=== PATIENT | female | born 1980 | race Caucasian/White ===

== ENCOUNTER 2021-05-20 15:54 | Outpatient (CLI) | payer BC, SELFPAY ==
--- NOTE | ~2021-05-20 | MM_ITS ---
EXAMINATION: MM screening man BI w vel HISTORY: Screening TECHNIQUE: Craniocaudal and mediolateral oblique 3-D tomosynthesis images were obtained and synthetic 2-D images were generated. CAD analysis was submitted and interpreted. COMPARISON: No prior mammogram is available for comparison at this institution. BREAST PARENCHYMAL COMPOSITION: There are scattered areas of fibroglandular density. FINDINGS: There is no evidence of suspicious mass, calcification, or architectural distortion to sugg est malignancy in either breast. There has been no suspicious interval change. IMPRESSION: 1. No mammographic evidence of malignancy. 2. Recommend routine screening mammography in one year. BI-RADS Category 1: Negative Reviewed, dictated and finalized at location A.
== END 2021-05-20 15:55 | disposition home or self-care (01) ==
LOC: ANHIMG 15:58
PROVIDERS: PCP Pediatrics; Visit Provider Student in an Organized Health Care Education/Training Program
DX: Z12.31 Encounter for screening mammogram for malignant neoplasm of breast (principal)
CPT/HCPCS: 77063; 77067

== ENCOUNTER 2021-05-30 14:25 | Outpatient (CLI) | payer BC, SELFPAY ==
--- NOTE | 2021-05-30 15:42 | ECG_ITS ---
Measurements Intervals [place] Rate: 80 P: 18 HI: 146 QRS: 50 QRSD: 89 T: 56 QT: 372 QTc: 431 Interpretive Statements SINUS RHYTHM MINIMAL Q WAVES- INFERIOR LEADS BASELINE ARTIFACT- I, III, AVL, AVF BORDERLINE ECG Electronically Signed On 05-30-2021 18:56:39 CDT by Warner Steward D.O.
[2021-05-30 16:07] LABS: Basophils Percent Auto 0.3 % (0.2-1.2); Eosinophils Absolute Auto 0.1 K/mm3 (0-0.3); Eosinophils Percent Auto 1.8 % (0-4.4); Hematocrit 48.9 % (37.0-47.0); Hemoglobin 15.6 g/dL (12.0-15.0); Immature Granulocyte Absolute 0.02 K/mm3 (0.00-0.031); Immature Granulocyte Percent A 0.3 % (0-0.5); Lymphocytes Absolute Auto 0.93 K/mm3 (0.9-3.2); Mean Corpuscular HGB Conc 31.9 g/dl (32-36); Mean Corpuscular Hemoglobin 30.1 pg (26-34); Mean Corpuscular Volume 94.2 fl (80-100); Mean Platelet Volume 9.7 fl (7.4-10.4); Monocytes Absolute Auto 0.7 K/mm3 (0.1-0.6); Monocytes Percent Auto 8.9 % (2.6-8.5); Neutrophils Absolute Auto 5.9 K/mm3 (1.3-6.7); Neutrophils Percent Auto 76.7 % (45.5-73.1); Platelet Count Result 397 k/mm3 (150-375); Red Blood Count 5.19 M/mm3 (4.2-5.4); Red Cell Distribution Width 12.9 % (11.5-14.5); White Blood Count 7.7 K/mm3 (4.5-10.0)
[2021-05-30 16:17] LABS: INR 0.9; Prothrombin Time 12.4 Seconds (11.1-14.7)
[2021-05-30 16:18] LABS: Partial Thromboplastin Time 28.7 SECONDS (22.3-36.8)
[2021-05-30 17:49] LABS: Alanine Aminotransferase 21 U/L (4-35); Albumin Level 4.8 g/dL (3.5-5.1); Alkaline Phosphatase 79 U/L (38-126); Anion Gap 9 mmol/L (8-16); Aspartate Amino Transferase 27 U/L (14-36); Bilirubin,Total 1.2 mg/dL (0.2-1.3); Blood Urea Nitrogen 12 mg/dL (7-17); Calcium 8.7 mg/dL (8.4-10.2); Carbon Dioxide 29 mmol/L (22-30); Chloride 103 mmol/L (98-107); Estimated Glomerular Filt Rate > 60; Glucose 101 mg/dL (65-110); Potassium 3.7 mmol/L (3.4-5.0); Sodium 141 mmol/L (137-145)
== END 2021-05-30 14:26 | disposition home or self-care (01) ==
PROVIDERS: PCP Pediatrics; Visit Provider Urology
DX: N81.2 Incomplete uterovaginal prolapse (principal); Z01.818 Encounter for other preprocedural examination
CPT/HCPCS: 36415; 80053; 85025; 85610; 85730; 86850; 86900; 86901; 87077; 87086; 87088; 93005

== ENCOUNTER 2021-06-03 01:32 | Day surgery (SDC) | payer BC, SELFPAY ==
[2021-05-30 15:02] VITALS: BP 142/92; PULSE 91; RESP 18; TEMP 36.6; O2SAT 99; BMI 39.6
--- NOTE | 2021-05-31 13:56 | P.PNAN_ITS ---
Anes - Initial Pre Proc Eval Procedure: Operation Date: 06/03/21 07:30 Proposed Procedures p Robotic Sacrocolpopexy - Ronal Hawkins MD s Urethral Sling - Ronal Hawkins MD s Robotic Assisted Supracervical Hysterectomy with Bilateral Salpingectomy - Thomas Pedersen MD Date/Time: 05/31/21 13:56 Surgeon: Ronal Hawkins MD Pre Op Diagnosis: incomplete uterovaginal prolapse, stress incont Patient Data Age: 40 Gender: F Height: 1.7 m Weight: 114.7 kg Last Vital Signs Temp 97.9 F 05/30/21 15:02 Pulse 91 05/30/21 15:02 Resp 18 05/30/21 15:02 BP 142/92 H 05/30/21 15:02 Pulse Ox 99 05/30/21 15:02 Allergies Allergy/AdvReac Type Severity Reaction Status Date / Time clindamycin Allergy Severe Rash Verified 05/30/21 14:54 levofloxacin Allergy Severe Stopped Verified 05/30/21 14:54 Breathing erythromycin base Allergy Unknown Rash Verified 05/30/21 14:54 Penicillins Allergy Unknown Unknown Verified 05/30/21 14:54 Home Medications Medication Instructions Recorded Confirmed Type bupropion HCl 300 mg PO QAM 05/30/21 05/30/21 History cholecalciferol (vitamin D3) 50 mcg PO DAILY 05/30/21 05/30/21 History levothyroxine 150 mcg PO QAM 05/30/21 05/30/21 History multivitamin [Multiple Vitamin] 1 tablet PO DAILY 05/30/21 05/30/21 History Patient hx anesthesia problems: none Family hx anesthesia problems: none Results Review: All pre-operative results and documents have been reviewed as part of the pre-operative evaluation. FOR[facility]LY [facility] Past Medical History Medical History Anxiety Asthma Depression Hypothyroid Social History Social History Smoking packs per day: 0.25 Smoking cigarettes per day: 5.0 Years smoked: 6 Smoking pack-years: 1.50 Smoking status: Former smoker Smoking end date: 02/21/10 Alcohol intake: former Alcohol use details: [employer] Substance use: never Living arrangements: with family Additional living arrangements comments: HUSB AND CHILDREN Spiritual care concerns: No Anes - Eval Final PreProcedure Day of Procedure 05/31/21 13:56 Patient weight: morbidly obese Heart: regular rate and rhythm Lungs: clear to auscultation Airway: Mallampati scale class II Neurological: alert and oriented Last oral intake: >/= 8 hours ASA classification: III Emergent: no Anesthetic plan: proceed Anesthesia type and monitoring: general ETT and standard monitoring Results Review: All pre-operative results and documents have been reviewed as part of the pre-operative evaluation. Informed Consent: The patient's anesthetic plan and its attendant risks and benefits were discussed with the patient/family/POA. Questions were solicited and answers provided to the satisfaction of the patient/family/POA.
--- NOTE | 2021-06-01 12:42 | P.HP_ITS ---
H&P: HPI History of Present Illness Date/Time: 06/01/21 12:42 40 yo with uretine prolapse and KLEBER Chief Complaint: POP/KLEBER Review of Systems Review of Systems: All systems reviewed & are unremarkable except as noted in HPI and below [facility] Past Medical History Medical History Anxiety Asthma Depression Hypothyroid Social History Social History Smoking packs per day: 0.25 Smoking cigarettes per day: 5.0 Years smoked: 6 Smoking pack-years: 1.50 Smoking status: Former smoker Smoking end date: 02/21/10 Alcohol intake: former Alcohol use details: [employer] Substance use: never Additional living arrangements comments: HUSB AND CHILDREN Spiritual care concerns: No Meds Home Medications and Allergies Home Medications Medication Instructions Recorded Confirmed Type bupropion HCl 300 mg PO QAM 05/30/21 05/30/21 History cholecalciferol (vitamin D3) 50 mcg PO DAILY 05/30/21 05/30/21 History levothyroxine 150 mcg PO QAM 05/30/21 05/30/21 History multivitamin [Multiple Vitamin] 1 tablet PO DAILY 05/30/21 05/30/21 History Allergies Allergy/AdvReac Type Severity Reaction Status Date / Time clindamycin Allergy Severe Rash Verified 05/30/21 14:54 levofloxacin Allergy Severe Stopped Verified 05/30/21 14:54 Breathing erythromycin base Allergy Unknown Rash Verified 05/30/21 14:54 Penicillins Allergy Unknown Unknown Verified 05/30/21 14:54 Exam Const: General: cooperative and healthy appearing HENMT: Head: normal to inspection Mouth: Yes Normal oral and palatal mucosa present Eyes: General: appearance normal, both eyes and all related structures Resp: Effort & Inspection: normal respiratory effort and able to speak in complete sentences GI: Inspection: normal to inspection : Bimanual Exam- Adnexa, other: No apex supported (-1) Skin: General skin exam: normal color Neuro: General: patient oriented x3 Assessment and Plan Assessment and plan (1) Uterine prolapse: Code(s): N81.4 - Uterovaginal prolapse, unspecified Status: Acute Assessment and Plan: Robotic Sacral Colpopexy (2) KLEBER (stress urinary incontinence, female): Code(s): N39.3 - Stress incontinence (female) (male) Status: Acute Assessment and Plan: Urethral sling
--- NOTE | 2021-06-02 20:15 | PM.IMHP ---
H&P: HPI History of Present Illness Date/Time: 06/02/21 20:15 Chief Complaint: pelvic organ prolapse urinary incontinence Narrative: 40 yo female who presents for robotic assisted TLH/BS with sacral colpopexy and midurethral sling. Review of Systems Cardiovascular: Cardiovascular: Denies chest pain, Denies leg edema, Denies palpitations, Denies dyspnea and Denies dyspnea on exertion Respiratory: Respiratory: Denies cough, Denies dyspnea and Denies dyspnea on exertion Gastrointestinal: Gastrointestinal: Denies abdominal pain, Denies constipation, Denies diarrhea, Denies nausea and Denies vomiting Genitourinary: Genitourinary: Denies hematuria, Denies urinary frequency, Denies dysuria, Denies pelvic pain, Denies urinary incontinence and Denies vaginal discharge Neurologic: Reports system reviewed and no additional complaints, except as documented Psychiatric: Psychiatric: Reports no additional psychiatric complaints Endocrine: Endocrine: Denies palpitations PMFSH Past Medical History Medical History Anxiety Asthma Depression Hypothyroid Social History Social History Smoking packs per day: 0.25 Smoking cigarettes per day: 5.0 Years smoked: 6 Smoking pack-years: 1.50 Smoking status: Former smoker Smoking end date: 02/21/10 Alcohol intake: former Alcohol use details: [employer] Substance use: never Additional living arrangements comments: HUSB AND CHILDREN Spiritual care concerns: No Meds Home Medications and Allergies Home Medications Medication Instructions Recorded Confirmed Type bupropion HCl 300 mg PO QAM 05/30/21 05/30/21 History cholecalciferol (vitamin D3) 50 mcg PO DAILY 05/30/21 05/30/21 History levothyroxine 150 mcg PO QAM 05/30/21 05/30/21 History multivitamin [Multiple Vitamin] 1 tablet PO DAILY 05/30/21 05/30/21 History Allergies Allergy/AdvReac Type Severity Reaction Status Date / Time clindamycin Allergy Severe Rash Verified 05/30/21 14:54 levofloxacin Allergy Severe Stopped Verified 05/30/21 14:54 Breathing erythromycin base Allergy Unknown Rash Verified 05/30/21 14:54 Penicillins Allergy Unknown Unknown Verified 05/30/21 14:54 Exam Const: General: no acute distress Eyes: EOM: EOMs intact bilaterally Neck: Neck: supple Thyroid: thyroid normal Chest: Breast/axilla inspection: normal inspection of the breasts Breast/axilla palpation: normal palpation of the breasts, normal palpation of the axillae and no axillary lymphadenopathy Resp: Effort & Inspection: normal respiratory effort Auscultation: clear to auscultation bilaterally Cardio: Rate: regular rate Rhythm: regular rhythm GI: Inspection: non-distended GI Palp: Yes Soft to palpation, No Tenderness to palpation present (GI) and No Guarding due to palpation present (GI) Auscultation: normal bowel sounds : General: No bladder normal to palpation External Female Exam: normal external appearance Speculum Exam - Vagina: normal vaginal discharge and No vaginal bleeding Speculum Exam - Cervix: nontender Bimanual exam- vagina & uterus: No bladder normal to palpation and No Cervical tenderness present OB/external & speculum: No vaginal bleeding Skin: General skin exam: normal color and no rashes or lesions noted Neuro: Cognition (Neuro): normal cognition Speech: normal speech Extrem: General: normal to inspection and no edema Psych: Mental Status: mental status grossly normal Affect: normal affect Assessment and Plan Assessment and plan (1) Uterine prolapse: Code(s): N81.4 - Uterovaginal prolapse, unspecified Status: Acute Assessment and Plan: pt with symptomatic pelvic organ prolapse plan for robotic TLH/BS with sacral colpopexy performed by urogyneoclogy (2) KLEBER (stress urinary incontinence, female): Code(s): N39.3 - Stress incon
[2021-06-03] VITALS (10 sets, daily range): BP systolic 101–131; BP diastolic 57–81; PULSE 55–78; RESP 12–18; TEMP 36.1–37.1; O2SAT 94–100
--- NOTE | 2021-06-03 07:01 | WPDHPUPDATE1 ---
History and Physical Update Update Date/Time: 06/03/21 07:01 History and Physical has been reviewed, including an updated exam of the patient. There are NO changes in the patient's condition. Risks, benefits, and alternatives have been discussed and questions answered. Patient agrees to proceed with procedure.
[2021-06-03] MEDS: LACTATED RINGERS 1,000 ML 30 ML IV CONT ×2 (07:05→10:53)
[2021-06-03] MEDS: KETOROLAC 15 MG/ML VIAL (*BKC) IV PUSH (07:11)
[2021-06-03] MEDS: ACETAMINOPHEN 500 MG TABLET 1000 MG PO (07:11)
--- NOTE | 2021-06-03 07:17 | WPDHPUPDATE1 ---
History and Physical Update Update Date/Time: 06/03/21 07:17 History and Physical has been reviewed, including an updated exam of the patient. There are NO changes in the patient's condition. Risks, benefits, and alternatives have been discussed and questions answered. Patient agrees to proceed with procedure.
[2021-06-03] MEDS: ceFAZolin 2 GM/D5W 50 ML 2 GM/50 ML BAG IVPB (07:30)
[2021-06-03] MEDS: metroNIDAZOLE 500 MG/ISO 100ML 500 MG/100 ML BAG 100 MG IVPB ×2 (07:40→19:17)
--- NOTE | 2021-06-03 08:44 | P.OP_ITS ---
Procedure Note - Detailed Date of Procedure 06/03/21 Pre-op Diagnosis incomplete uterovaginal prolapse, stress incont Post-op Diagnosis same Procedure Performed robotic assisted total laparoscopic supracervical hysterectomy and bilateral salpingectomy Surgeon Thomas Pedersen MD Anesthesia general Findings normal appearing uterus and bilateral ovaries. Previously surgically removed bilateral fallopian tubes Description of Procedure After the patient was appropriately consented she was taken to the operating room where she was transferred to the table in a dorsal supine position. General anesthesia was then induced with endotracheal intubation. The patient was transferred to a dorsal lithotomy position using adjustable yellow-fin stirrups. Her position was adjusted for appropriate support of her lower back and lower extremities. The patient was prepped and draped. A transurethral cruz catheter was place. A speculum was placed to help visualize the cervix. The anterior lip of the cervix was grasped with a tenaculum. An acorn manipulator was then placed in the uterus. Attention was then turned to the abdomen. Dr. Hawkins proceeded with laparoscopic port placement and abdominal entry. The robot was then docked. Upon inspection, the fallopian tubes were previously surgically removed in the previous bilateral tubal ligation. A small portion of each tube from the mid-isthmic portion to the uterine body remained. The remaining left fallopian tube was identified. The segment of tube was then transected along the inferior mesosalpinx to the attachment to the uterine body. The left round ligament was then identified and ligated. The broad ligament was then dissected to separate the anterior and posterior aspects. The left utero- ovarian ligament and vessels were then ligated to free the left ovary from the uterus. The posterior aspect of the broad ligament was then skeletonized down to the level of the internal cervical os, mobilizing the ureter laterally. The anterior aspect of the broad ligament was then dissected down to the internal cervical os and a bladder flap was then created sharply. The ipsilateral uterine artery was skeletonized, bipolar cauterized and transected. A similar procedure was performed on the contralateral side, transecting the fallopian tube, transecting the round ligament, dissecting the broad ligament, completing the bladder flap, and skeletonizing, ligating, and dividing the uterine artery on this side. An EAA sizer was introduced into the vagina to help delineate the the borders of the cervix. A circumferential colpotomy using monopolar current in the mid cervix. The cervix was completely transected and the remaining cervical stump was coagulated with monopolar cautery. The uterine body was then bi-valved with monopolar energy. The specimen was then placed in the posterior cul de sac for later removal by Dr. Hawkins. At this time, my portion of the procedure was completed. Please see Dr. Hawkins's dictation for the remainder of the procedure. Estimated Blood Loss 50 Drains No Packing No Pathology yes (uterus and bilateral fallopian tubes ) Complications No immediate complications Condition stable Disposition PACU
[2021-06-03] MEDS: LIDO 1%/EPINEPHRINE 1:100,000 50 ML VIAL INFILTRATE (09:27)
--- NOTE | 2021-06-03 10:56 | W.PM.PROC2 ---
Procedure Note - Detailed Date of Procedure 06/03/21 Pre-op Diagnosis incomplete uterovaginal prolapse, stress incont Post-op Diagnosis same Procedure Performed Robotic assisted laparoscopic sacral colpopexy Urethral sling Cystoscopy Surgeon Ronal Hawkins MD Anesthesia general Indications a woman with uterine prolapse as well as stress incontinence. She desires surgical correction. She is here for the above. She understands risks of bleeding, infection, diskitis, damage to surrounding organs, bowel injury, bowel obstruction, mesh related complications including exposure and extrusion, postoperative voiding dysfunction including incontinence and retention, need for ancillary procedures, dyspareunia, recurrence of prolapse, and other perioperative intraoperative postoperative complications. She agrees to proceed. Findings See below Description of Procedure She was correctly identified. Informed consent obtained. She from the operating room. She was given general anesthesia. She was given appropriate perioperative antibiotics. She was placed a low lithotomy position. Pressure points were padded. A time-out performed. I marked out the skin 3 fingerbreadths cephalad to the umbilicus. I anesthetized the skin. I incised the skin. I dissected down to the fascia. I grasped the fascia with Vicky clamps. I entered the fascia sharply in a Conrad type technique. I placed sutures for later fascial closure. I placed a midline trocar. I examined the abdomen. There is no sign of any injury. Under direct vision I placed 2 additional trocars in the right upper quadrant and 2 additional trocars the left upper quadrant. She was placed in steep Trendelenburg. The robot was docked. Her broadcast chief engineer completed their portion of the procedure. Please see that operative report for details. I then sat at the console. The Sizer in the vagina created plane on the anterior and posterior vaginal wall. I took great care not to injure the vagina, bladder, or rectum. I introduced the mesh into the abdomen. I sewed the anterior leaflet of mesh on the anterior vaginal wall. I sewed the posterior leaflet of mesh on the posterior vaginal wall. This was done with several sutures of 2 0 Chester-Angel. I reflected the colon laterally. I opened the posterior peritoneum over the sacral promontory. I carried this into the cul-de-sac. I freed up the edges for later retroperitonealization. I located the anterior longitudinal ligament the sacrum. I cleaned off all fatty tissues. I then tensioned my mesh appropriately. I did a vaginal exam the bedside. I assured prolapse reduction without undue tension. I then sewed the proximal leaflet of mesh onto the anterior longitudinal ligament of the sacrum with several sutures of 2 0 Chester-Angel. I then used a 2 0 Monocryl to completely and meticulously retroperitonealized all mesh. I allowed the colon to go back to its normal anatomic location. There is no sign of any impingement. The specimen was then removed. All ports removed. Fascia was tied down. Skin was closed with Monocryl and surgical glue. She was repositioned and prepped for urethral sling. I marked out the inner thigh incisions. I anesthetized the skin and made the incisions. I then anesthetized the anterior vaginal wall at the mid urethra. I made a 1 cm incision. I dissected out laterally taking great care not to injure the refilled vaginal wall. I passed the helical trocars. I did this 1st on the left and then on the right. This was done from the thigh incision towards the vaginal incision. Sling was connected to the trocars and brought out the thigh incision. I tensioned the sling appropriately. I cut and the plastic sheaths. I closed the incision with 2 0 Vicryl. I then performed cystoscopy. There was no tumors or surgical artifact. Both ureters were seen to excrete clear yellow urine. There is no surgical artifact in the bladder or urethra. I cut
[2021-06-03] MEDS: fentaNYL CITRATE INJ (*CRX) 100 MCG/2 ML VIAL 25 MCG IV PUSH ×4 (11:21→11:48)
--- NOTE | 2021-06-03 11:28 | SUR.PHASEI ---
HOB ELEVATED 25 DEGREES. PILLOW PLACED UNDERNEATH BILAT KNEES FOR COMFORT.
[2021-06-03] MEDS: KETOROLAC 30 MG/ML VIAL (*BKC) IV PUSH (12:45)
[2021-06-03] MEDS: MORPHINE SULFATE (*CRX) 2 MG/ML INJ IV PUSH ×2 (12:46→14:28)
[2021-06-03] MEDS: KCL 20 MEQ/D5/0.45% SOD CHL 1,000 ML 100 ML IV CONT (12:49)
[2021-06-03] MEDS: HYDROcodone/acetaminophen (*CRX) 5-325 MG TABLET 1 TAB PO (17:49)
[2021-06-04] MEDS: KCL 20 MEQ/D5/0.45% SOD CHL 1,000 ML 100 ML IV CONT (00:21)
[2021-06-04] MEDS: HYDROcodone/acetaminophen (*CRX) 5-325 MG TABLET 1 TAB PO ×4 (00:28→13:26)
[2021-06-04] MEDS: metroNIDAZOLE 500 MG/ISO 100ML 500 MG/100 ML BAG 100 MG IVPB ×2 (03:00→11:00)
[2021-06-04 03:42] VITALS: BP 121/69; PULSE 71; RESP 18; TEMP 36.9
--- NOTE | 2021-06-04 07:03 | PM.DS ---
DS: Admitting Diagnosis Discharge Date 06/04/21 Admitting Diagnosis pelvic organ prolapse KLEBER DS: Summary Hospital Course Hospital Course: Danyell King was admitted after robotic assisted supracervical hysterectomy and bilateral salpingectomy, sacral colpopexy, mid urethral sling for pelvic organ prolapse and KLEBER. The above procedure was performed with no complications. She is doing well post op. She states her pain is well controlled with PO medications. She reports minimal bleeding. She is ambulating up to the chair. Her cruz catheter was removed. She is tolerating PO without N/V. She reports passing flatus. Status at Discharge Overall status at discharge: patient is progressing back to baseline Time Spent with Patient Time attestation: Total time spent providing and/or coordinating discharge services: Time spent: Less than 30 minutes Exam Const: General: comfortable and no acute distress Limitations: no limitations Resp: Effort & Inspection: normal respiratory effort Auscultation: clear to auscultation bilaterally Cardio: Rate: regular rate Rhythm: regular rhythm GI: Inspection: non-distended GI Palp: Yes Soft to palpation, Yes Tenderness to palpation present (GI) (milder tenderness to deep palpation) and No Guarding due to palpation present (GI) Auscultation: normal bowel sounds Other: incisions C/D/I covered with dermabond Urinary Catheter: Urinary Catheter: urine clear Skin: General skin exam: normal color Extrem: General: normal to inspection Psych: Mental Status: mental status grossly normal Affect: normal affect DS: Data Data Completed and Pending Pending studies at discharge: Pending at discharge 06/03/21 08:17 Surgical [PTH] Routine Discharge Plan Discharge Patient Disposition: Home, Self-Care Discharge Instructions: No lifting >20lb, exercise for 6 weeks No tub bath or pool for 2 weeks no intercourse 6 weeks Patient Instructions: Hysterectomy (DC) Stand Alone Forms: General Discharge Instructions Follow-up/Referrals: Ronal Hawkins MD [Physician] - (6 weeks) Discharge Medications: New docusate sodium [Colace] 100 mg capsule 100 mg PO BID Qty: 60 RF: 0 hydrocodone-acetaminophen 5-325 mg tablet 1 tablet PO Q6H PRN (Reason: pain) Qty: 20 RF: 0 Continued bupropion HCl 150 mg Tablet Extended Release 24 Hr 300 mg PO QAM RF: 0 levothyroxine 150 mcg Capsule 150 mcg PO QAM RF: 0 multivitamin Tablet 1 tablet PO DAILY RF: 0 cholecalciferol (vitamin D3) 50 mcg (2,000 unit) Capsule 50 mcg PO DAILY RF: 0
[2021-06-04 07:35] VITALS: BP 109/57; PULSE 70; RESP 16; TEMP 36.8; O2SAT 97
[2021-06-04] MEDS: LEVOTHYROXINE SODIUM 150 MCG TABLET PO (07:56)
[2021-06-04] MEDS: buPROPion HCL XL (24 HR) 150 MG TABCR 300 MG PO (07:57)
[2021-06-04 09:00] VITALS: PULSE 70; RESP 16; O2SAT 97
[2021-06-04] MEDS: CEPHALEXIN 500 MG CAPSULE PO (13:28)
[2021-06-04 14:00] VITALS: PULSE 70; RESP 16; O2SAT 97
--- NOTE | 2021-06-04 15:12 | WPDANESPN ---
Anes - Prog Note Post-Op Date/Time: 06/04/21 15:12 Cardiovascular status: normal Respiratory status: normal Airway patency: baseline Mental status: baseline Post-Op hydration status: normal Vital Signs: Last Vital Signs Temp 98.2 F 06/04/21 07:35 Pulse 70 06/04/21 09:00 Resp 16 06/04/21 09:00 BP 109/57 L 06/04/21 07:35 Pulse Ox 97 06/04/21 09:00 Pain Score (VAS): 0 I/O: Intake & Output 06/03/21 06/04/21 06/04/21 23:59 07:59 15:59 Intake Total 250 2200 800 Output Total 351 629 7254 Balance -550 1275 -250 Post-procedural complaints: none Patient Feedback: Patient satisfied with anesthetic care.
== END 2021-06-04 16:24 | disposition home or self-care (01) ==
LOC: ANHSURGERY 11:04 → ANHOB2 12:05
PROVIDERS: Student in an Organized Health Care Education/Training Program; PCP Pediatrics; Visit Provider Urology
PROC: (CPT 57425; principal; 2021-06-03 07:30)
PROC: (CPT 57288; 2021-06-03 07:30)
PROC: (CPT 58542; 2021-06-03 07:30)
DX: N81.2 Incomplete uterovaginal prolapse (principal); N39.3 Stress incontinence (female) (male); N80.0 Endometriosis of uterus; N73.6 Female pelvic peritoneal adhesions (postinfective); J45.909 Unspecified asthma, uncomplicated; E03.9 Hypothyroidism, unspecified; F41.8 Other specified anxiety disorders; Z87.891 Personal history of nicotine dependence; E66.01 Morbid (severe) obesity due to excess calories; Z68.39 Body mass index [BMI] 39.0-39.9, adult
CPT/HCPCS: 57288; 57425; 58542; S2900 ×2; 88307; 99199; A9270; C1771; C1781; C9290; J0131; J0690; J1100; J1170; J1885; J2250; J2270; J2405; J2704; J2710; J3010; J3480; J7030; J7120